=== PATIENT | male | born 1955 | race Caucasian/White ===

== ENCOUNTER 2017-02-04 12:36 | Emergency (ER) | payer OTHER ==
--- NOTE | 2017-02-04 15:18 | ED ORDER SUMMARY ---
..... Patient: KAYLA PANTOJA OrderSheet [facility] VisitID: [id number] [address] [place] [address] 61y, M Registration Date/Time: 02/04/2017 ORDER SHEET Weight: 92.9 kg (stated) Allergies: No Known Drug Allergy GENERAL ORDERS: CBC w Diff Urgent (13:02/04/2017 EKoroleva P.A.-C) (Ack 13:08 Anabela) (13:22 DDean R.N.) BMP Urgent (13:02/04/2017 EKoroleva P.A.-C) (Ack 13:08 TERESAoerner) (13:22 DDean R.N.) UA-Culture if indicated Urgent (13:02/04/2017 EKoroleva P.A.-C) (Ack 13:08 TERESAoekulwant) (14:27 DDean R.N.) MEDICATION ORDERS: IV FLUIDS: IV NS : initial bolus 1000 mL (1000 mL/hr), then 10 mL/hr for X1 (NOW); Augustine (13:07 02/04/2017 EKoroleva P.A.-C) (Ack 13:07 DDean R.N.) (13:22 DDean R.N.) IV NS : initial bolus 1000 mL (1000 mL/hr), then 10 mL/hr for X1 (NOW); Augustine (14:25 02/04/2017 EKoroleva P.A.-C) (Ack 14:27 DDean R.N.) (14:33 DDean R.N.) ORDER SHEET NOTES: [Electronically signed by Danielle Weiss R.N. (15:31 02/04/2017)] [Electronically signed by Shagufta RizzoAMarcial-C (15:43 02/04/2017)] [Electronically locked/signed by Danielle Weiss R.N. (15:31 02/04/2017)]
--- NOTE | 2017-02-04 15:18 | ED ORDER SUMMARY ---
..... Patient: KAYLA PANTOJA OrderSheet [facility] VisitID: [id number] [address] [place] [address] 61y, M Registration Date/Time: 02/04/2017 ORDER SHEET Weight: 92.9 kg (stated) Allergies: No Known Drug Allergy GENERAL ORDERS: CBC w Diff Urgent (13:02/04/2017 EKoroleva P.A.-C) (Ack 13:08 Anabela) (13:22 DDean R.N.) BMP Urgent (13:02/04/2017 EKoroleva P.A.-C) (Ack 13:08 TERESAoerner) (13:22 DDean R.N.) UA-Culture if indicated Urgent (13:02/04/2017 EKoroleva P.A.-C) (Ack 13:08 TERESAoekulwant) (14:27 DDean R.N.) MEDICATION ORDERS: IV FLUIDS: IV NS : initial bolus 1000 mL (1000 mL/hr), then 10 mL/hr for X1 (NOW); Augustine (13:07 02/04/2017 EKoroleva P.A.-C) (Ack 13:07 DDean R.N.) (13:22 DDean R.N.) IV NS : initial bolus 1000 mL (1000 mL/hr), then 10 mL/hr for X1 (NOW); Augustine (14:25 02/04/2017 EKoroleva P.A.-C) (Ack 14:27 DDean R.N.) (14:33 DDean R.N.) ORDER SHEET NOTES: [Electronically signed by Danielle Weiss R.N. (15:31 02/04/2017)] [Electronically signed by Shagufta RizzoAMarcial-C (15:43 02/04/2017)] [Electronically locked/signed by Danielle Weiss R.N. (15:31 02/04/2017)]
--- NOTE | 2017-02-04 15:18 | ED NURSING NOTES ---
Clinical Report - Nurses [facility] [address] [place] [address] 02/04/2017 12:40 Patient: KAYLA PANTOJA TRIAGE Triage time 1250. Acuity: LEVEL 3. --13:04 Danielle Weiss R.N. 12:56 02/04/17. Temp: 98.3 F. Pain level now 10/03. --13:04 Danielle Weiss R.N. Triage time 1256. --15:30 Danielle Weiss R.N. Chief Complaint: ("diarrhea, and lump in groin area"). --15:31 Danielle Weiss R.N. Weight: 92.9 kg stated. Height/Length: 70 inches Per Patient. BMI: 29.4. --12:56 Danielle Weiss R.N. Medications Hydrochlorothiazide Oral 1/2 tab , daily. Simvastatin Oral 40 mg, daily. --13:03 Danielle Weiss R.N. Ibuprofen Oral 600 mg, PRN, last dose 1200. --13:03 Danielle Weiss R.N. Allergies No Known Drug Allergy. --13:02 Danielle Weiss R.N. History Arrived by private vehicle. Historian: patient. Accompanied by spouse. Primary physician (kaitlynn). This started yesterday. ( c/o nausea and diarrhea since yesterday- has had similar presentations with onset of his non-hodgkins lymphoma). ( also has inguinal hernia that has been "popping in and out for about 2 months"). SOCIAL HX: Never smoker. Occasional alcohol use. History of drug use: marijuana. --13:04 Danielle Weiss R.N. ( denies black or bloody stools , had some nausea yesterday, but not today). Able to void. --13:05 Danielle Weiss R.N. ( c/o diarrhea and "lump in groin area"). --15:30 Danielle Weiss R.N. PROBLEMS: Non-Hodgkin's lymphoma (clinical). --13:02 Danielle Weiss R.N. ADDITIONAL SURGERIES: Back Surgery. Cholecystectomy. Esophageal blockage removed . --13:02 Danielle Weiss R.N. Interventions ID band on patient. To treatment room. --13:04 Danielle Weiss R.N. PHYSICAL ASSESSMENT 12:50. Ambulatory to room. Patient gowned. GENERAL / NEURO / PSYCH: Alert. Oriented X 4. RESPIRATORY: Respirations not labored. CVS: Capillary refill less than 2 seconds. GI / : Abdomen soft. No pain with urination, frequency of urination or urgency of urination. Patient is not incontinent of urine. ( states he has a "lump" left groin area "but it is back in now"). SKIN: Skin is warm and dry. --13:07 Danielle Weiss R.N. NURSING PROGRESS NOTES 12:50. Patient gowned. Head of bed elevated. Reassurance given. Patient identifiers checked. Call light placed in reach. Side rails up. Bed placed in lowest position. --13:05 Danielle Weiss R.N. 13:01 02/04/2017 Site #1 started via IV in the left forearm with an 18g angiocath, with aseptic technique and good blood return; one attempt. Blood drawn: rainbow set. Labeled in the presence of the patient and sent to the lab. Saline lock flushed with 10 mL saline. --13:06 Danielle Weiss R.N. 13:10 02/04/2017 Started bag #1 1000 mL IV Fluids IV NS (Saline); at 1000 mL/hr over 1 hour(s) via site #1 via IV pump. --13:22 Danielle Weiss R.N. 14:27 02/04/2017 IV Fluids IV NS Discontinued: bag #1 infused. Total amount infused: 1000 mL. IV patency established. IV site checked: no pain, redness, or swelling. IV flushed thoroughly. --14:32 Danielle Weiss R.N. 14:28 02/04/2017 Started bag #2 1000 mL IV Fluids IV NS (Saline); at 1000 mL/hr over 1 hour(s) via site #1 via IV pump. --14:33 Danielle Weiss R.N. 14:00. Patient ID band checked for patient name and birthdate: patient confirmed. Clean catch urine collected with return of yellow-colored cloudy urine; sample sent to lab for urinalysis and culture. Specimen labeled in the presence of the patient. --15:25 Danielle Weiss R.N. 14:00 02/04/17. BP: 112/75. HR: 62. RR: 18. O2 saturation: 99%. Temp: deferred. Pain level now: 0/10. --15:26 Danielle Weiss R.N. 15:00 contacted lab, asking when UA would be done. was informed that they did not have order. I stated that my computer shows that there is an order, however, we will send order again if they needed it. Pt informed of delay in results. --15:28 Danielle Weiss R.N. 15:10 02/04/2017 Site #1 removed upon discharge. Bandaid applied. --15:28 Danielle Weiss R.N. 15:10 02/04/2017 IV Fluids IV NS Discontinued: bag #2 STOPPED upon discharge. Total amount infused: 800 mL. IV patency established. IV site checked: no pain, redness, or swelling. IV flushed thoroughly. --15:29 Danielle Weiss R.N. DISPOSITION / DISCHARGE 15:20. Condition at departure: unchanged and stable. No learning barriers present. Discharge instructions provided and reviewed with the patient and spouse. Patient and spouse verbalized understanding. Written instructions provided in [place]. The patient was discharged home and accompanied by spouse. He left the Emergency Department ambulatory and via private vehicle. Spouse driving. --15:24 Danielle Weiss R.N. 15:20 02/04/17. BP: 116/79. HR: 60. RR: 16. O2 saturation: 99%. Temp: deferred. Pain level now: 0/10. --15:24 Dainelle Weiss R.N. Locked/Released at 02/04/2017 15:31 by Danielle Weiss R.N.
--- NOTE | 2017-02-04 15:18 | ED CLINICAL REPORT ---
Clinical Report - Physicians/Mid Levels [facility] [address] [place] [address] 02/04/2017 12:40 Patient: KAYLA PANTOJA Time Seen: 13:33 Feb 04 2017. Arrived- By private vehicle. Historian- patient. HISTORY OF PRESENT ILLNESS Chief Complaint: VOMITING. This started just prior to arrival and is still present. No recent travel. He has had nausea and vomiting. No black stools, bloody stools, constipation or flank pain. He has had abdominal pain (none now). Has not recently been camping. The illness is described as mild. (Patient to his previous he was diagnosed with non-Hodgkin's disorder, which is largely dormant. Patient reports abdominal cramping yesterday and diarrhea, diarrhea has persisted into today. Abdominal pain has improved. Reports history of hernia the last 2 month, scheduled for surgical referral later this month.). REVIEW OF SYSTEMS No fever, muscle aches, difficulty with urination, dark urine or headache. No sore throat, cough, chest pain or difficulty breathing. All systems otherwise negative, except as recorded above. PAST HISTORY Problems: Non-Hodgkin's lymphoma (clinical). Additional Surgeries: Back Surgery. Cholecystectomy. Esophageal blockage removed . Medications: Ibuprofen Oral 600 mg, PRN, last dose 1200. Hydrochlorothiazide Oral 1/2 tab , daily. Simvastatin Oral 40 mg, daily. Allergies: No Known Drug Allergy. SOCIAL HISTORY Never smoker. Alcohol use. History of drug use: marijuana. ADDITIONAL NOTES The nursing notes have been reviewed. PHYSICAL EXAM Vital Signs: 02/04/2017 12:54 BP: 116/79. HR: 58. RR: 18. O2 saturation: 99%. Temp: 98.3 F. Appearance: Alert. ENT: Nose normal. Pharynx normal. Neck: Normal inspection. CVS: Normal heart rate and rhythm. Heart sounds normal. Respiratory: No respiratory distress. No decreased air movement. Abdomen: Soft and nontender. Bowel sounds normal. No mass. No abdominal tenderness. (Small inguinal left side reducible hernia.). Back: Normal inspection. Skin: Skin warm. Normal skin color. No rash. LABS, X-RAYS, AND EKG Laboratory Tests: UA-Culture if indicated: (LIANNA: 02/04/2017 14:15) ( [facility] 02/04/2017 15:07) Final results Test Result Flag Units (Reference) URINE COLOR DIMITRIS URINE APPEARANCE CLEAR URINE GLUCOSE NEGATIVE (NEGATIVE) URINE BILIRUBIN ICTOTEST NEGATIVE (NEGATIVE) URINE KETONE TRACE (NEGATIVE) URINE SPECIFIC GRAVITY 1.020 (1.010-1.030) URINE PH 6.0 (5.0-8.0) URINE PROTEIN TRACE (NEGATIVE) URINE UROBILINOGEN 0.2 EU/dL (0.2-1.0) URINE NITRITE NEGATIVE (NEGATIVE) URINE BLOOD NEGATIVE (NEGATIVE) URINE LEUK ESTERASE NEGATIVE (NEGATIVE) URINE RBC NONE SEEN rbc/hpf (0-1) URINE WBC 3-5 wbc/hpf (0-1) URINE EPITHELIAL CELLS 1-3 EPI/hpf (0-5) URINE BACTERIA NONE SEEN (NONE SEEN) URINE COMMENT CULT NOT INDICATED 2+ MUCUSURINE CULTURES ARE SET-UP BASED ON THE FOLLOWING CRITERIA:POSITIVE NITRITEPOSITIVE LEUKOCYTE ESTERASEGREATER THAN 10 WHITE BLOOD CELLSMODERATE (2+) OR GREATER BACTERIA CBC w Diff: (LIANNA: 02/04/2017 13:10) ( [facility] 02/04/2017 13:18) Final results Test Result Flag Units (Reference) WHITE BLOOD COUNT 5.4 K/uL (4.5-11.5) RED BLOOD COUNT 3.97 L M/uL (4.50-5.90) HEMOGLOBIN 12.3 L gm/dL (13.5-17.5) HEMATOCRIT 36.1 L % (41.0-53.0) MEAN CELL VOLUME 91 fL (80-100) MEAN CORPUSCULAR HGB 31 pg (26-34) MEAN CORPUSCULAR HGB CONC 34 g/dL (31-37) RED CELL DISTRIBUTION WIDTH 12.6 % (11.6-14.8) PLATELET COUNT 214 K/uL (150-400) NEUTROPHIL % 76.2 H % (50-75) LYMPH % 15.2 L % (25-40) MONO % 7.3 % (3-14) EOSINOPHIL % 0.9 % (0-4) BASOPHIL % 0.4 % (0-2) BMP: (LIANNA: 02/04/2017 13:10) ( [facility] 02/04/2017 13:26) Final results Test Result Flag Units (Reference) GLUCOSE 114 H mg/dL (70-110) BUN 18 mg/dL (7-18) CREATININE 1.1 mg/dL (0.6-1.3) Estimated GFR >60 mL/min Estimated GFR- >60 mL/min Note: Persistent reduction over 3 months in eGFR<60 mL/min/1.73 m2 defines CKD. Patients with eGFR values>=60 mL/min/1.73 m2 may also have CKD if evidence ofpersistent proteinuria. Additional information may be foundat www.kidney.org. SODIUM 139 mmol/L (136-145) POTASSIUM 3.9 mmol/L (3.5-5.1) CHLORIDE 102 mmol/L (98-107) CARBON DIOXIDE 26 mmol/L (21-32) CALCIUM 8.1 L mg/dL (8.5-10.1) . PROGRESS AND PROCEDURES Course of Care: Reducible hernia otherwise abdomen soft nontender. Patient very stable. Patient with no signs of McBurney's point tenderness. No guarding or peritoneal signs. Patient follow up outpatient. Denies melena or hematochezia. 02/04/2017 15:20 BP: 116/79. HR: 60. RR: 16. O2 saturation: 99%. Pain level now: 0/10. Patient is stable. Symptoms better. Patient/family counseled. Differential Diagnosis: I considered gastritis, gastroenteritis, acute appendicitis, diverticulitis, small bowel obstruction, biliary colic, hepatitis, splenic injury and intraabdominal abscess as a possible cause of abdominal pain in this patient. This is a partial list of diagnoses considered. CLINICAL IMPRESSION Diarrhea Reducible left inguinal hernia. No recurrent hernia, incarcerated hernia, obstruction or gangrene. INSTRUCTIONS Drink plenty of fluids. Follow-up: Follow up with your doctor in three days as needed. (Electronically signed by Shagufta Rizzo P.A.-C 02/04/2017 15:43)
--- NOTE | 2017-02-04 15:44 | ED MAR SUMMARY ---
..... Medication Administration Record [facility] [address] [place] [address] Patient: KAYLA PANTOJA Visit ID: [id number] 61y, M Weight: 92.9 kg Height/Length: 70 in BMI: 29.4 ALLERGIES: No Known Drug Allergy Start 13:02/04/2017 Danielle Weiss R.N., Stop 14:27 02/04/2017 Danielle Weiss R.N. Medication Administered: IV NS (SALINE), Dose: IV Fluids over 1 hour(s), Rate: 1000 mL/hr, Dispensed: 1000 mL bag, Site: #1 left forearm. Medication Ordered: IV NS : initial bolus 1000 mL (1000 mL/hr), then 10 mL/hr for X1 (NOW); Augustine. Start 14:28 02/04/2017 Danielle Weiss R.N., Stop 15:02/04/2017 Danielle Weiss R.N. Medication Administered: IV NS (SALINE), Dose: IV Fluids over 1 hour(s), Rate: 1000 mL/hr, Dispensed: 1000 mL bag, Site: #1 left forearm. Medication Ordered: IV NS : initial bolus 1000 mL (1000 mL/hr), then 10 mL/hr for X1 (NOW); Augustine.
--- NOTE | 2017-02-04 15:44 | ED DISCHARGE INSTRUCTIONS ---
Patient: KAYLA PANTOJA General Instructions [facility] VisitID: [id number] [place] [address] 61y, M Registration Date/Time: 02/04/2017 Diarrhea Reducible left inguinal hernia. No recurrent hernia, incarcerated hernia, obstruction or gangrene. INSTRUCTIONS Drink plenty of fluids. Follow-up: Follow up with your doctor in three days as needed. ADDITIONAL INFORMATION Diarrhea, Uncertain Cause (Adult, Report Pending) Diarrhea has several possible causes. Commonstomach fluis caused by a virus. Food poisoning, bacteria or parasites are other causes for diarrhea. Only diarrhea caused by bacteria or parasites requires treatment with an antibiotic. Diarrhea from a virus or food poisoning improves with simple home treatment. A stool sample is needed to make the diagnosis of an infection with bacteria or parasites. Up to three stool specimens may be required to diagnose This may take up to two days to get the result. It may be necessary to wait until the stool test is complete to make the diagnosis and select the best antibiotic to prescribe. Home Care: If symptoms are severe, rest at home for the next 24 hours or until you are feeling better. You may use acetaminophen (Tylenol) or ibuprofen (Motrin, Advil) to control fever, unless another medicine was prescribed. [NOTE: If you have chronic liver or kidney disease or ever had a stomach ulcer or GI bleeding, talk with your doctor before using these medicines.] (Aspirin should never be used in anyone under 18 years of age who is ill with a fever. It may cause severe liver damage.) Avoid tobacco, caffeine and alcohol, which may worsen your symptoms. If anti-diarrhea medicine was prescribed, take this only as directed. Sometimes anti-diarrhea medicine can make your condition worse if the cause is an infectious diarrhea. Therefore, anti-diarrhea medicine should not be taken for this condition unless advised by your doctor. During The First 12-24 Hours follow the diet below: BEVERAGES: Sport drinks like Gatorade, soft drinks without caffeine; allan kavya, mineral water (plain or flavored), decaffeinated tea and coffee. SOUPS: Clear broth, consomm and bouillon DESSERTS: Plain gelatin (Jell-O), popsicles and fruit juice bars. During The Next 24 Hours you may add the following to the above: Hot cereal, plain toast, bread, rolls, crackers Plain noodles, rice, mashed potatoes, chicken noodle or rice soup Unsweetened canned fruit (avoid pineapple), bananas Limit fat intake to less than 15 grams per day by avoiding margarine, butter, oils, mayonnaise, sauces, gravies, fried foods, peanut butter, meat, poultry and fish. Limit fiber; avoid raw or cooked vegetables, fresh fruits (except bananas) and bran cereals. Limit caffeine and chocolate. No spices or seasonings except salt. During The Next 24 Hours Gradually resume a normal diet, as you feel better and your symptoms lessen. Follow Up with your doctor or as advised if you are not improving over the next two days. If you were asked to bring a specimen from home, bring the sample on the day of collection. You may call in 2 days (or as directed) for the results. Get Prompt Medical Attention if any of the following occur: Increasing abdominal pain or constant lower right abdominal pain Continued vomiting (unable to keep liquids down) Frequent diarrhea (more than 5 times a day) Blood in vomit or stool (black or red color) Reduced oral intake Dark urine, reduced urine output Weakness, dizziness, fainting Drowsiness, confusion, stiff neck or seizure Fever of 100.4F (38C) oral or higher, not better with fever medication New rash Hernia [Adult] A hernia is a bulge of the intestines or surrounding tissues through a tear in the muscle of the abdomen or groin. This may occur as a result of excessive coughing, heavy lifting or being overweight. It can also occur at the site of prior surgery. When a hernia first appears it may be painful due to stretching and tearing of the muscle fibers. When you lie down, the bulge should reduce in size or disappear completely. If it does not, and you are unable to flatten it with your hand, medical attention is needed at once. Home Care: Avoid heavy lifting and straining or any activities that cause pain in the hernia. Follow Up with your physician as directed by our staff. Get Prompt Medical Attention if any of the following occur: Increasing size of the hernia Increasing pain in the hernia A hernia that does not get smaller when you lie down Hardening of the hernia Abdominal swelling, fever or repeated vomiting Pain moves to the lower right abdomen (just below the waistline) or spreads to the back [place] Diet A bland diet is used for patients with an upset stomach. It consists of foods that are mild and easy to digest. It is better to eat small frequent meals rather than three large meals a day. BEVERAGES OK: Fruit juices, non-caffeinated teas and coffee, non-carbonated shannon AVOID: Carbonated beverage, caffeinated tea and coffee, all alcoholic beverages BREAD OK: Refined white, wheat or rye bread, staci or soda crackers, [place] toast, plain rolls, bagels AVOID: Whole-grain bread CEREAL OK: Refined cereals: cooked or ready to eat AVOID: Whole grain cereals and granola, or those containing bran, seeds or nuts DESSERTS OK: Peanut butter and all others except those to "avoid" AVOID: Chocolate, cocoa, coconut, popcorn, nuts, seeds, jam, marmalade FRUITS OK: Canned, cooked, frozen or fresh fruits without seeds or tough skin AVOID: Olives, skin and seeds of fruit MEATS OK: All fresh or preserved meat, fish and fowl AVOID: Any that are prepared with those spices to "avoid" CHEESE & EGGS OK: Eggs, cottage cheese, cream cheese, other cheeses AVOID: All cheeses made with those spices to "avoid" POTATOES & PASTA OK: Potato, rice, macaroni, noodles, spaghetti AVOID: None SOUPS OK: All soups without heavy seasoning AVOID: Soups made with those spices to "avoid" VEGETABLES OK: Canned, cooked, fresh or frozen mildly flavored vegetables without seeds, skins or coarse fiber AVOID: Vegetables prepared with those spices to "avoid"; skin and seeds of vegetables and those with coarse fiber SPICES OK: Salt, lemon and burns paiute juice, vinegar, all extracts, adolfo, cinnamon, thyme, mace, allspice, paprika AVOID: [place] powder, cloves, pepper, seed spices, garlic, gravy pickles, highly seasoned salad dressings Clear Liquid Diet Clear liquids are any liquid that you can see through as well as those that are very easy to digest. This is used while the body is recovering from irritation or infection of the stomach or intestinal tract. It may also be used before special procedures or surgery. This diet is to be used no more than three days. You may include the following items. Adults Adults should drink a total of 23 quarts of liquid per day. It may be easier to drink small frequent servings rather than a few large ones. Liquids can include: Fruit juices.Strained orange juice or lemonade (no pulp), apple, grape and cranberry juice, clear fruit drinks, sports drinks Beverages.Sport drinks, sodas, mineral water (plain or flavored), tea, black coffee, liquid gelatin (add twice the recommended amount of water) Soups.Clear broth, consomm, bouillon Desserts.Plain gelatin, popsicles, fruit juice bars Children Over 2 years old The following liquids are acceptable for children over age 2: Fruit juices.Strained orange juice or lemonade (no pulp), apple, grape and cranberry juice, clear fruit drinks Beverages. Sports drinks, sodas, mineral water (plain or flavored), tea, liquid gelatin (add twice the recommended amount of water) Soups. Clear broth, consomm, bouillon Desserts. Plain gelatin, popsicles, fruit juice bars Children under 2 years old Oral rehydration fluids such are available at drug stores and most grocery stores without a prescription. You have been given the following additional information: Diarrhea, Unk Cause (Adult) Report Pendg Hernia (Inguinal, Ventral, Umbilical) Diet, [place] (Adult) Diet, Clear Liquid (Electronically signed by Shagufta Rizzo P.A.-C 02/04/2017 15:43)
--- NOTE | 2017-02-04 15:44 | ED MAR SUMMARY ---
..... Medication Administration Record [facility] [address] [place] [address] Patient: KAYLA PANTOJA Visit ID: [id number] 61y, M Weight: 92.9 kg Height/Length: 70 in BMI: 29.4 ALLERGIES: No Known Drug Allergy Start 13:02/04/2017 Danielle Weiss R.N., Stop 14:27 02/04/2017 Danielle Weiss R.N. Medication Administered: IV NS (SALINE), Dose: IV Fluids over 1 hour(s), Rate: 1000 mL/hr, Dispensed: 1000 mL bag, Site: #1 left forearm. Medication Ordered: IV NS : initial bolus 1000 mL (1000 mL/hr), then 10 mL/hr for X1 (NOW); Augustine. Start 14:28 02/04/2017 Danielle Weiss R.N., Stop 15:02/04/2017 Danielle Weiss R.N. Medication Administered: IV NS (SALINE), Dose: IV Fluids over 1 hour(s), Rate: 1000 mL/hr, Dispensed: 1000 mL bag, Site: #1 left forearm. Medication Ordered: IV NS : initial bolus 1000 mL (1000 mL/hr), then 10 mL/hr for X1 (NOW); Augustine.
--- NOTE | 2017-02-04 15:44 | ED MED RECONCILIATION SUMMARY ---
Patient: KAYLA PANTOJA Medication Reconciliation Report [facility] VisitID: [id number] [address] [place] [address] 61y, M Registration Date/Time: 02/04/2017 Weight: 92.9 kg Height/Length: 70 in. BMI: 29.4 ALLERGIES: No Known Drug Allergy The patient's Home Medications are listed below: THE FOLLOWING MEDICATIONS NEED TO BE RECONCILED: Hydrochlorothiazide Oral 1/2 tab , daily Ibuprofen Oral 600 mg, PRN, last dose: 1200 Simvastatin Oral 40 mg, daily The source(s) of the original Home Medication information: Not obtained. The following Medications were given to the patient in the Emergency Department: IV NS IV Fluids bolus 0, then 1000 mL/hr, administered: 02/04/2017 1:10:00 PM IV NS IV Fluids bolus 0, then 1000 mL/hr, administered: 02/04/2017 2:28:00 PM The following Medications were prescribed to the patient: None.
--- NOTE | 2017-02-04 15:44 | ED MED RECONCILIATION SUMMARY ---
Patient: KAYLA PANTOJA Medication Reconciliation Report [facility] VisitID: [id number] [address] [place] [address] 61y, M Registration Date/Time: 02/04/2017 Weight: 92.9 kg Height/Length: 70 in. BMI: 29.4 ALLERGIES: No Known Drug Allergy The patient's Home Medications are listed below: THE FOLLOWING MEDICATIONS NEED TO BE RECONCILED: Hydrochlorothiazide Oral 1/2 tab , daily Ibuprofen Oral 600 mg, PRN, last dose: 1200 Simvastatin Oral 40 mg, daily The source(s) of the original Home Medication information: Not obtained. The following Medications were given to the patient in the Emergency Department: IV NS IV Fluids bolus 0, then 1000 mL/hr, administered: 02/04/2017 1:10:00 PM IV NS IV Fluids bolus 0, then 1000 mL/hr, administered: 02/04/2017 2:28:00 PM The following Medications were prescribed to the patient: None.
== END 2017-02-04 15:20 | disposition home or self-care (01) ==
LOC: ED SRH 12:36
DX: R19.7 Diarrhea, unspecified (principal); K40.90 Unilateral inguinal hernia, without obstruction or gangrene, not specified as recurrent
CPT/HCPCS: 90004; 90047; 95059